=== PATIENT | male | born 1995 | race Caucasian/White ===

== ENCOUNTER 2021-03-04 05:40 | Emergency (ER) | payer OTHER ==
[~2021-03-04] VITALS: Ht 185.4 cm; Wt 88.5 kg
== END 2021-03-04 14:45 | disposition home or self-care (01) ==
LOC: ED 05:40
DX: S51.811A Laceration without foreign body of right forearm, initial encounter (principal); F10.129 Alcohol abuse with intoxication, unspecified; X78.8XXA Intentional self-harm by other sharp object, initial encounter
CPT/HCPCS: 12004; 80053; 80176; 81001; 84443; 85025; 99285-25; J1630; J2060